=== PATIENT | female | born 1970 | race Two or more races ===

== ENCOUNTER 2020-12-24 14:23 | Emergency (ER) | payer MEDICAID, OTHER ==
[~2020-12-24] VITALS: Ht 162.6 cm; Wt 79.8 kg
--- NOTE | 2020-12-24 14:34 | NUR ---
EDEN FROM HOME. CALLED IN BY ROOM MATE. TO ER BED 11. EMOTIONAL DISTRESS. CRYING. UNABLE TO GET MUCH INFORMATION FROM PT. BROUGHT IN FOR ACTING WEIRD. PER REPORT AND PT, SHE IS OUT OF HER MEDS. SHE IS UNABLE TO VERBALIZED THE MEDICATION THAT SHE IS OUT OF. DENIES AND THOUGHT OF SI NOR HI. AWAITING MD FOR JAKE
[2020-12-24 14:57] LABS: BASOPHILS # (AUTO) 0.1 /CMM (0.0-0.2); BASOPHILS % (AUTO) 0.8 % (0.0-2.0); EOSINOPHILS % (AUTO) 3.5 % (0.0-6.0); HEMATOCRIT 27 % (33-45); HEMOGLOBIN 8.3 g/dL (11.5-14.8); LYMPHOCYTES # (AUTO) 1.7 /CMM (0.8-4.8); LYMPHOCYTES % (AUTO) 25.4 % (20.0-44.0); MEAN CORPUSCULAR HGB CONC 31 g/dl (31.0-36.0); MEAN CORPUSCULAR VOLUME 66 fL (82-100); MONOCYTES # (AUTO) 0.7 /CMM (0.1-1.30); MONOCYTES % (AUTO) 10.5 % (2.0-12.0); NEUTROPHILS # (AUTO) 4.1 /CMM (1.8-8.9); NEUTROPHILS % (AUTO) 59.8 % (43.0-81.0); PLATELET COUNT (AUTO) 348 /CMM (150-450); RED BLOOD CELL COUNT(AUTO) 4.03 MIL/uL (4.0-5.2); WHITE BLOOD COUNT (AUTO) 6.8 K/uL (4.3-11.0)
[2020-12-24 15:11] LABS: CALCIUM, SERUM 8.7 mg/dL (8.5-10.1); CARBON DIOXIDE 28 mmol/L (21-32); CHLORIDE 102 mmol/L (98-107); CREATININE 0.9 mg/dL (0.6-1.3); GLUCOSE 88 mg/dL (74-106); POTASSIUM 3.7 mmol/L (3.5-5.1); SODIUM SERUM 139 mmol/L (136-145); UREA NITROGEN, BLOOD 14 mg/dL (7-18)
[2020-12-24 15:24] LABS: ACETAMINOPHEN < 2 ug/ml (10-30); ALANINE AMINOTRANSFERASE 79 U/L (12-78); ALBUMIN 3.4 g/dL (3.4-5.0); ALCOHOL, BLOOD < 3 mg/dL (0-0); ALKALINE PHOSPHATASE 129 U/L (46-116); ASPARTATE AMINOTRANSFERASE 60 U/L (15-37); BILIRUBIN,DIRECT 0.1 mg/dL (0.0-0.2); BILIRUBIN,TOTAL 0.3 mg/dL (0.2-1.0); TOTAL PROTEIN, SERUM 7.4 g/dL (6.4-8.2)
[2020-12-24 16:12] LABS: EOSINOPHILS % (MANUAL) 3 % (0-4); LYMPHOCYTES % (MANUAL) 27 % (16-48); MONOCYTES % (MANUAL) 4 % (0-11.0); NEUTROPHILS % (MANUAL) 66 (42-76)
--- NOTE | 2020-12-24 17:34 | NUR ---
PT PROVIDED WITH A MEAL
[2020-12-24] MEDS ORDERED: OLANZAPINE 5 MG TABLET ONE (17:38)
[2020-12-24] MEDS ORDERED: OLANZAPINE 5 MG TABLET PO ONE (18:00)
--- NOTE | 2020-12-24 18:55 | NUR ---
pt verbalized that she is feeling better and would like to go home already because she need to take care of her grandchild. made aware. Pt is ambulatory on steady gait.
[2020-12-24] MEDS ORDERED: TRAZ-182 PO (19:06)
[2020-12-24] MEDS ORDERED: RISP1TAB7 PO (19:06)
[2020-12-24] MEDS ORDERED: risperiDONE 1 MG TABLET ONE (19:08)
[2020-12-24] MEDS ORDERED: ACETAMINOPHEN 325 MG TABLET ONE (19:09)
[2020-12-24] MEDS ORDERED: TRAZODONE 50 MG TABLET ONE (19:09)
[2020-12-24 19:16] VITALS: BP 145/91
--- NOTE | 2020-12-24 19:16 | NUR ---
Patient discharged to home in stable condition. Written and verbal after care instructions given. Patient verbalizes understanding of instruction. Pt ambulatory with a steady gait
[2020-12-24] MEDS ORDERED: TRAZODONE 50 MG TABLET PO ONE (19:30)
[2020-12-24] MEDS ORDERED: risperiDONE 0.25 MG TABLET PO ONE (19:30)
[2020-12-24] MEDS ORDERED: ACETAMINOPHEN 325 MG TABLET PO ONE (19:30)
== END 2020-12-24 19:16 | disposition home or self-care (01) ==
LOC: ER 14:31 → EDUNIT# 14:31 → EDBD 14:31 → ER 19:16
DX: R44.0 Auditory hallucinations (principal); E11.9 Type 2 diabetes mellitus without complications; F32.9 Major depressive disorder, single episode, unspecified; F41.9 Anxiety disorder, unspecified; Z59.0 Homelessness; Z79.899 Other long term (current) drug therapy
CPT/HCPCS: 36415; 80048-TC; 80076-TC; 85025-TC; G0480

== ENCOUNTER 2020-12-24 20:07 | Emergency (ER) | payer OTHER ==
[~2020-12-24 20:07] MED LIST: RISP1TAB7 PO; TRAZ-182 PO
== END 2020-12-24 20:17 | disposition home or self-care (01) ==
LOC: ER 20:12
DX: Z75.3 Unavailability and inaccessibility of health-care facilities (principal)

== ENCOUNTER 2021-02-06 08:09 | Emergency (ER) | payer MEDICAID ==
[~2021-02-06] VITALS: Ht 160 cm; Wt 86.2 kg
[2021-02-06] MEDS ORDERED: ACETAMINOPHEN ES 500 MG TABLET ONE (08:29)
[2021-02-06] MEDS ORDERED: ACETAMINOPHEN ES 500 MG TABLET PO ONE (08:30)
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
[2021-02-06] MEDS ORDERED: IBUP-1955 PO ×2 (08:36→09:30)
[2021-02-06 09:31] VITALS: BP 150/88
--- NOTE | 2021-02-06 09:32 | NUR ---
Patient discharged to home in stable condition. Written and verbal after care instructions given. Patient verbalizes understanding of instruction. Per Admitting will merge all CT scan results to the right patient. Theo Singh. Per admitting paramedics gave them worng patient name. aware and notified.
== END 2021-02-06 09:31 | disposition home or self-care (01) ==
LOC: ER 08:15 → EDUNIT# 08:15 → ER 09:31
DX: S09.8XXA Other specified injuries of head, initial encounter (principal); R68.84 Jaw pain; R07.89 Other chest pain; K02.9 Dental caries, unspecified; E11.9 Type 2 diabetes mellitus without complications; F32.9 Major depressive disorder, single episode, unspecified; F41.9 Anxiety disorder, unspecified; Z59.0 Homelessness; Y08.89XA Assault by other specified means, initial encounter; Y93.89 Activity, other specified; Y92.89 Other specified places as the place of occurrence of the external cause; Y99.8 Other external cause status
CPT/HCPCS: 70450-TC; 70486-TC; 71045-TC; 72125-TC

== ENCOUNTER 2021-02-06 09:25 | Emergency (ER) | payer OTHER ==
[~2021-02-06] VITALS: Ht 160 cm; Wt 86.2 kg
[~2021-02-06 09:25] MED LIST changes: +IBUP-1955 PO
[2021-02-06] MEDS ORDERED: IBUP-1955 PO (09:30)
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
[2021-02-06 09:35] VITALS: BP 150/78
--- NOTE | 2021-02-06 09:37 | NUR ---
Patient discharged to home in stable condition. Written and verbal after care instructions given. Patient verbalizes understanding of instruction.
== END 2021-02-06 09:37 | disposition home or self-care (01) ==
LOC: ER 09:25
DX: S00.83XA Contusion of other part of head, initial encounter (principal); R07.89 Other chest pain; K02.9 Dental caries, unspecified; E11.9 Type 2 diabetes mellitus without complications; F32.9 Major depressive disorder, single episode, unspecified; F41.9 Anxiety disorder, unspecified; Z59.0 Homelessness; Z79.899 Other long term (current) drug therapy; Y08.89XA Assault by other specified means, initial encounter; Y93.89 Activity, other specified; Y92.89 Other specified places as the place of occurrence of the external cause; Y99.8 Other external cause status

== ENCOUNTER 2022-04-18 12:30 | Inpatient (IN) | payer OTHER ==
[~2022-04-18] VITALS: Ht 152.4 cm; Wt 93.4 kg
[2022-04-18] VITALS (43 sets, daily range): BP systolic 37–164; BP diastolic 26–113
[2022-04-18] MEDS ORDERED: LORAZEPAM INJ 2 MG/ML VIAL ONE (12:46)
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
--- NOTE | 2022-04-18 12:56 | NUR ---
INTUBATION PERFORMED BY DR WHITAKER 1257: 20MG OF ETOMIDATE 1258: 100MG ROCURONIUM
--- NOTE | 2022-04-18 13:07 | NUR ---
WET PRESS TENDER AT BEDSIDE FOR XRAY
--- NOTE | 2022-04-18 13:08 | NUR ---
ACCUCHECK SHOWS HIGH, MD AWARE
[2022-04-18] MEDS ORDERED: PROPOFOL 100 ML ONE (13:18)
--- NOTE | 2022-04-18 13:22 | NUR ---
RT PT INTUBATED 7.5CM 24CM AT TEETH SECURED AND PATENT COLOR CHANGE BILATERAL EQUAL BREATH SOUNDS PLACED ON [facility] VENT AC 18 500 100% +5 PLUGGED IN RED OUTLET WILL CONT TO MONITOR XRAY DONE PULLED OUT 2CM OUT ETT PLACED AT 22CM AT TEETH Addendum: 04/18/22 at 1326 by THOMAS MCPHERSON RT Amended: Links added.
[2022-04-18] MEDS ORDERED: PROPOFOL 1,000 MG/100 ML BOTTLE IV ONE (13:30)
[2022-04-18] MEDS ORDERED: MIDAZOLAM HCL 100 MG in IV NS 0.9% 80 ML IV PRN (13:30)
[2022-04-18] MEDS ORDERED: LORAZEPAM INJ 2 MG/ML VIAL IV ONE (13:30)
[2022-04-18 13:41] LABS: BASOPHILS % (AUTO) 0.2 % (0.0-2.0); HEMATOCRIT 48 % (33-45); HEMOGLOBIN 14.3 g/dL (11.5-14.8); LYMPHOCYTES # (AUTO) 0.3 K/uL (0.8-4.8); LYMPHOCYTES % (AUTO) 2.4 % (20.0-44.0); MEAN CORPUSCULAR HGB CONC 30 g/dl (31.0-36.0); MEAN CORPUSCULAR VOLUME 96 fL (82-100); MONOCYTES # (AUTO) 0.9 K/uL (0.1-1.30); MONOCYTES % (AUTO) 8.1 % (2.0-12.0); NEUTROPHILS # (AUTO) 9.7 K/uL (1.8-8.9); NEUTROPHILS % (AUTO) 89.3 % (43.0-81.0); PLATELET COUNT (AUTO) 272 K/uL (150-450); RED BLOOD CELL COUNT(AUTO) 4.97 MIL/uL (4.0-5.2); WHITE BLOOD COUNT (AUTO) 10.9 K/uL (4.3-11.0)
--- NOTE | 2022-04-18 14:02 | NUR ---
COVID SWAB DONE AND SENT TO LAB
[2022-04-18] MEDS: IV NS 0.9% 1,000 ML IV PRN ×2 (14:20→16:52)
--- NOTE | 2022-04-18 14:26 | NUR ---
URINE COLLECTED AND SENT TO LAB
[2022-04-18] MEDS ORDERED: ENOXAPARIN SODIUM 40 MG/0.4 ML DISP.SYRIN SQ SCH (14:30)
[2022-04-18] MEDS ORDERED: ONDANSETRON HCL/PF 4 MG/2 ML VIAL IVP PRN (14:30)
[2022-04-18] MEDS ORDERED: INSULIN REGULAR, HUMAN 100 UNIT in IV NS 0.9% 99 ML IV PRN ×2 (14:30)
[2022-04-18] MEDS ORDERED: ACETAMINOPHEN 650 MG/SUPP.RECT RC PRN (14:30)
--- NOTE | 2022-04-18 14:44 | NUR ---
REPORT GIVEN TO JAMIL LARA FOR ANJALI
--- NOTE | 2022-04-18 14:47 | NUR ---
HOLD INSULIN PER DR WHIATKER
[2022-04-18 15:18] LABS: BILIRUBIN,URINE NEGATIVE (NEGATIVE); COLOR,URINE YELLOW (YELLOW); LEUKOCYTE ESTERASE ,URINE NEGATIVE (NEGATIVE); NITRITE, URINE NEGATIVE (NEGATIVE); PROTEIN,URINE NEGATIVE (NEGATIVE); UGLUCOSE >=1000 mg/dL (NEGATIVE); UROBILINOGEN,URINE 0.2 EU/dL (0.2)
--- NOTE | 2022-04-18 15:36 | NUR ---
TRANSFERRED TO BED 254 IN STABLE CONDITION
[2022-04-18 15:43] LABS: WBC,URINE 0-2 /HPF (0-3)
[2022-04-18 15:44] LABS: BACTERIA,URINE 2+ /HPF (None Seen); SQUAMOUS EPITHELIAL CELL,UR 0-2 /HPF (None Seen)
--- NOTE | 2022-04-18 16:00 | NUR ---
RN/ICU PT RECEIVED FROM THE ER INTUBATED AND OBTUNDED BREATHING EVEN AND UNLABORED. ADMITTED FOR DRUG OVERDOSE TESTED POSITIVE FOR AMPHETAMINE AND DANGEROUSLY ELEVATED GLUCOSE ABOVE 600. FEVER OF 102 HAD NOT RECEIVED ANY INSULIN DRIP. PT STARTED ON INSULIN 10 UNITS/HR PER MD ORDER. MORA CATHETER PATENT AND DRAINING YELLOW URINE. FEVER TREATED WITH COOLING MEASURES TYLENOL, COOLING BLANKET, AND ICE PACKS APPLIED TO THE PT TO REDUCE TEMPERATURE. MD NOTIFIED OF HYPERTHERMIA 104 AND CLIMBING.
[2022-04-18 16:22] LABS: POTASSIUM 3.7 mmol/L (3.5-5.1)
[2022-04-18 16:25] LABS: ALBUMIN 3.2 g/dL (3.4-5.0); BILIRUBIN,DIRECT 1.2 mg/dL (0.0-0.2); BILIRUBIN,TOTAL 2.2 mg/dL (0.2-1.0); CALCIUM, SERUM 9.9 mg/dL (8.5-10.1); THYROID STIMULATING HORMONE 1.668 uIU/mL (0.358-3.74); TOTAL PROTEIN, SERUM 7.4 g/dL (6.4-8.2)
[2022-04-18 16:26] LABS: CREATININE 2.4 mg/dL (0.6-1.3)
[2022-04-18 16:41] LABS: ABG BASE EXCESS -11.1 mmol/L; ABG PCO2 40.6 mmHg (35.0-45.0); ABG PH 7.217 (7.350-7.450); ABG PO2 106.8 mmHg (75.0-100.0); COHb 0.7 % (0.5-1.5); MetHb 0.4 % (0.0-1.5); PEEP,BG 5 cm H2O; SITE, ABG Right Radial; VT, ABG 500 mL
[2022-04-18] MEDS ORDERED: ENOXAPARIN SODIUM 30 MG/0.3 ML DISP.SYRIN SQ SCH (17:00)
[2022-04-18] MEDS ORDERED: ETOMIDATE 2 MG/ML VIAL IV ONE (18:20)
[2022-04-18] MEDS ORDERED: ROCURONIUM BROMIDE 50 MG/5 ML IV ONE (18:20)
[2022-04-18] MEDS ORDERED: NOREPINEPHRINE 8 MG in IV NS 0.9% 242 ML IV PRN (19:30)
--- NOTE | 2022-04-18 19:58 | NUR ---
PT RCVD ORALLY INTUBATED WITH ETT 7.5 SECURED @ 22 CM [facility] WITH THE SETTINGS OF AC 20,VT 500, FIO2 40% PEEP 5. VENT PLUGGED INTO RED OUTLET, VENT ALARMS ON AND AUDIBLE. AMBU BAG AT BEDSIDE. WILL CONTINUE TO MONITOR T/O SHIFT.
[2022-04-18] MEDS: BLOOD SUGAR DIAGNOSTIC 1 EACH STRIP IN SCH ×4 (20:05→23:10)
[2022-04-18 20:11] LABS: CALCIUM, SERUM 9.8 mg/dL (8.5-10.1); CREATININE 4.2 mg/dL (0.6-1.3)
[2022-04-18 20:49] LABS: POTASSIUM 2.4 mmol/L (3.5-5.1)
[2022-04-18] MEDS: NOREPINEPHRINE 32 MG in IV NS 0.9% 218 ML IV PRN (21:12)
[2022-04-18] MEDS: POTASSIUM CL. PREMIX PERIPHER. 50 ML IV SCH ×3 (21:21→23:13)
[2022-04-18] MEDS ORDERED: IV NS 0.9% 250 ML IV PRN (21:30)
[2022-04-18] MEDS ORDERED: POTASSIUM CHLORIDE 20 MEQ POWDER PACKET GT SCH ×2 (21:30→22:30)
--- NOTE | 2022-04-18 21:33 | NUR ---
RN NOTE Potassium 2.4 and glucose of [address] meyer. Per md order. stop insulin drip. new Order 40 MEQ potassium via NG and another 40 MEQ potassium via NG in 1 hour. 30 MEQ potassium IV. new order noted and carried out. Repeat BMP after 2 hours of administration.
[2022-04-18] MEDS ORDERED: IV LR 1000 ML 1,000 ML IV PRN (22:30)
[2022-04-19] VITALS (17 sets, daily range): BP systolic 50–133; BP diastolic 17–93
[2022-04-19] MEDS: BLOOD SUGAR DIAGNOSTIC 1 EACH STRIP IN SCH ×5 (00:02→05:16)
[2022-04-19] MEDS ORDERED: PHENYLEPHRINE 100 MG in IV NS 0.9% 240 ML IV PRN (01:00)
[2022-04-19 01:48] LABS: CALCIUM, SERUM 9.7 mg/dL (8.5-10.1); CARBON DIOXIDE 15 mmol/L (21-32); CHLORIDE 108 mmol/L (98-107); CREATININE 5.5 mg/dL (0.6-1.3); POTASSIUM 3.6 mmol/L (3.5-5.1); SODIUM SERUM 140 mmol/L (136-145); UREA NITROGEN, BLOOD 21 mg/dL (7-18)
[2022-04-19 02:10] LABS: GLUCOSE > 500 mg/dL (74-106)
--- NOTE | 2022-04-19 02:21 | NUR ---
RN Note Relayed labs to SATURNINO Valverde. New order to restart insulin drip using algorithm #4.
[2022-04-19] MEDS ORDERED: NOREPINEPHRINE 4 MG/4 ML AMPUL IV ONE (04:31)
[2022-04-19] MEDS: NOREPINEPHRINE 32 MG in IV NS 0.9% 218 ML IV PRN (04:42)
[2022-04-19 04:47] LABS: BASOPHILS % (AUTO) 0.2 % (0.0-2.0); EOSINOPHILS % (AUTO) 0.3 % (0.0-6.0); HEMATOCRIT 53 % (33-45); HEMOGLOBIN 16.2 g/dL (11.5-14.8); LYMPHOCYTES # (AUTO) 2.2 K/uL (0.8-4.8); LYMPHOCYTES % (AUTO) 10.2 % (20.0-44.0); MEAN CORPUSCULAR HGB CONC 31 g/dl (31.0-36.0); MEAN CORPUSCULAR VOLUME 95 fL (82-100); MONOCYTES # (AUTO) 1.5 K/uL (0.1-1.30); MONOCYTES % (AUTO) 6.9 % (2.0-12.0); NEUTROPHILS # (AUTO) 17.9 K/uL (1.8-8.9); NEUTROPHILS % (AUTO) 82.4 % (43.0-81.0); PLATELET COUNT (AUTO) 152 K/uL (150-450); WHITE BLOOD COUNT (AUTO) 21.7 K/uL (4.3-11.0)
[2022-04-19 04:59] LABS: CALCIUM, SERUM 10.6 mg/dL (8.5-10.1); CARBON DIOXIDE 13 mmol/L (21-32); CHLORIDE 108 mmol/L (98-107); CREATININE 6.1 mg/dL (0.6-1.3); MAGNESIUM 3.3 mg/dL (1.8-2.4); PHOSPHORUS 3.5 mg/dL (2.5-4.9); POTASSIUM 4.2 mmol/L (3.5-5.1); SODIUM SERUM 142 mmol/L (136-145); UREA NITROGEN, BLOOD 23 mg/dL (7-18)
--- NOTE | 2022-04-19 05:40 | NUR ---
RN NOTE NO NEXT OF KIN CONTACT AVAILABLE ON FILE.
--- NOTE | 2022-04-19 05:50 | NUR ---
RN NOTE PATIENT TACHYCARDIC AT AROUND 115-130's BPM AND SUDDENLY BECAME BRADYCARDIC AT 50's BPM. UNABLE TO OBTAIN PULSE VIA DOPPLER. ER DOCTOR, VEENA, WAS AT BEDSIDE. CODE BLUE WAS INITIATED.
--- NOTE | 2022-04-19 06:00 | NUR ---
[facility] - BELLSTAND ATTENDANT NAME (ANTONIETTA). REFERRAL # [id number]
[2022-04-19 06:07] LABS: GLUCOSE > 500 mg/dL (74-106)
--- NOTE | 2022-04-19 06:38 | NUR ---
DRAMATIC DIRECTOR [employer] FLOORING SPECIALIST (Samuel SAHNI). DRAMATIC DIRECTOR . PER REPESENTATIVE, PATIENTS REMAINS CAN BE TAKEN TO THE [place] BUT COMPANY ACCOUNTANT WILL NOT BE TODAY.
--- NOTE | 2022-04-19 07:28 | NUR ---
CODE BLUE SHEETS, RECORD OF SHEET, & SKATE MAKER CASE SHEET ALL FILED IN PATIENTS CHART. Addendum: 04/19/22 at 0779 by LUIGI MONTELONGO RN PATIENT BELONGINGS ARE WITH PATIENT REMAINS, WITH NAME TAG.
--- NOTE | 2022-04-19 08:30 | NUR ---
RN NOTES PATIENTS BODY TAKEN TO THE [facility] AT THIS TIME VIA TWO SECURITIES.
[2022-04-19] MEDS ORDERED: PANTOPRAZOLE 40 MG VIAL IV SCH (09:00)
[2022-04-19] MEDS ORDERED: ATROPINE SULFATE 1 MG/10 ML DISP.SYRIN IV ONE (09:23)
[2022-04-19] MEDS ORDERED: CALCIUM CHLORIDE 1,000 MG/10 ML DISP.SYRIN IV ONE (09:23)
[2022-04-19] MEDS ORDERED: EPINEPHRINE (1:10,000) SYRINGE 1 MG/10 ML DISP.SYRIN IVP ONE (09:29)
[2022-04-19] MEDS ORDERED: Sodium Bicarbonate 50 MEQ/50 ML VIAL IV ONE (09:29)
[2022-04-19] MEDS ORDERED: POTASSIUM CHLORIDE 20 MEQ POWDER PACKET GT ONE ×2 (21:30→22:30)
== END 2022-04-19 10:08 | DRG 812 ==
LOC: ER 13:32 → ICU 14:58
PROC: 5A1935Z Respiratory Ventilation, Less than 24 Consecutive Hours (ICD-10-PCS; principal; 2022-04-18)
PROC: 0BH18EZ Insertion of Endotracheal Airway into Trachea, Via Natural or Artificial Opening Endoscopic (ICD-10-PCS; 2022-04-18)
PROC: 5A2204Z Restoration of Cardiac Rhythm, Single (ICD-10-PCS; 2022-04-18)
PROC: 02HV33Z Insertion of Infusion Device into Superior Vena Cava, Percutaneous Approach (ICD-10-PCS; 2022-04-18)
PROC: B548ZZA Ultrasonography of Superior Vena Cava, Guidance (ICD-10-PCS; 2022-04-18)
DX: T43.621A Poisoning by amphetamines, accidental (unintentional), initial encounter (principal); J96.01 Acute respiratory failure with hypoxia; I21.4 Non-ST elevation (NSTEMI) myocardial infarction; I47.2 Ventricular tachycardia; E11.10 Type 2 diabetes mellitus with ketoacidosis without coma; G40.501 Epileptic seizures related to external causes, not intractable, with status epilepticus; N19 Unspecified kidney failure; Y92.89 Other specified places as the place of occurrence of the external cause; Z20.822 Contact with and (suspected) exposure to COVID-19; Z59.00 Homelessness unspecified; F32.A Depression, unspecified; F41.9 Anxiety disorder, unspecified; Z79.899 Other long term (current) drug therapy; E66.01 Morbid (severe) obesity due to excess calories; Z68.41 Body mass index [BMI] 40.0-44.9, adult; I70.0 Atherosclerosis of aorta; F15.10 Other stimulant abuse, uncomplicated; J98.11 Atelectasis
CPT/HCPCS: 31720; 36415; 36600; 70450-TC; 71045-TC; 72125-TC; 80048-TC; 80076-TC; 81001; 82140-TC; 82803-TC; 82962-TC; 83735-TC; 84100-TC; 84443-TC; 84484-TC; 84703-TC; 85025-TC; 85730-TC; 87040-TC; 87081-TC; 87086-TC; 87186-TC; 92950-TC; 93307-TC; 94002-TC; 94003-TC; 99082-TC; A6253; G0378; J0171; J0461; J1650; J1815; J2060; J3480; J3490; J7030; J7050; J7120